=== PATIENT | male | born 1940 | race Caucasian/White ===

== ENCOUNTER 2020-03-07 13:19 | Inpatient (IN) | payer MEDICARE, BC ==
[~2020-03-07] VITALS: Ht 177.8 cm; Wt 64.9 kg
--- NOTE | ~2020-03-07 | HEMODYNAMI ---
PATIENT:RYAN SORIANO MEDICAL RECORD: [id number] : 36 LOCATION:[facility] D.2302 ADMISSION DATE: 03/07/20 Generatedon:03/08/202013:59 Patient name: RYAN SORIANO Patient #: [id number] SSN: : 1940 Date of study: 03/08/2020 Page: Of Hemodynamic Procedure Report Patient Data Patient Demographics Procedure consent was obtained First Name: RYAN Gender: Male Last Name: CHRISTIE : 1940 Patient #: [id number] Age: 80 year(s) Race: Unknown Additional ID: [id number] Contact details Address: [place] [place] [address] State: [place] City: [place] Zip code: [address] Admission Admission Data Admission Date: 03/07/2020 Admission Time: 18:51 Arrival Date: 03/07/2020 Arrival Time: 18:51 Admit Source: Other Insurance Payor: Medicare Room #: D.2302 [facility] #: [id number] Height (in.): 69.69 BSA: 1.79 (m2) Height (cm.): 177 BMI: 20.43 (kg/m2) Weight (lbs.): 141.1 Weight (kg.): 64 Lab Results Lab Result Date: 03/08/2020 Lab Result Time: 0:00 Biochemistry Name Units Result Min Max BUN mg/dl 23 --(----)-* 7 18 Creatinine mg/dl 1 --(--*-)-- 0.6 1.3 eGFR ml/min 76.22883 *-(----)-- 90 120 NONAFRICAN CBC Name Units Result Min Max Hemoglobin g/dl 11.3 *-(----)-- 13.5 17.5 Procedure Procedure Types Cath Procedure Diagnostic Procedure LHC LHC w/Coronaries Sedation Charges Moderate Sedation 10-24 minutes Procedure Description Procedure Date Procedure Date: 03/08/2020 Procedure Start Time: 13:49 Procedure End Time: 13:56 Procedure Staff Name Function Alexy Sage MD Performing Physician Mouna Caruso RT Monitor Ashley Ivory RT Scrub Anai Tatum RN Nurse Procedure Data Cath Procedure Fluoroscopy Diagnostic fluoroscopy Total fluoroscopy Time: 1.4 time: 1.4 min min Diagnostic fluoroscopy Total fluoroscopy dose: 473 dose: 473 mGy mGy Contrast Material Contrast Material Type Amount (ml) Isovue 300 69 Entry Location Entry Primary Successful Side Size Upsize Upsize Entry Closure Succes sful Closure Location (Fr) 1 (Fr) 2 (Fr) Remarks Device Remarks Femoral Right 5 Fr Exoseal artery Estimated blood loss: 5 ml Diagnostic catheters Device Type Used For End Catheter Placement MULTIPACK JL 4.0 5Fr Left Coronary catheter Angiography MULTIPACK 3DRC 5Fr Right Coronary catheter Angiography MULTIPACK Pigtail 5 Fr Multi-vessel catheter Angiography Procedure Complications No complications Procedure Medications Medication Administration Route Dosage Oxygen etCO2 Nasal cannula 2 l/min Lidocaine 2% added to field 20 Heparin Flush Bag added to field 2 bags (1000units/500ml NS) 0.9% NaCl I.V. 100 ml/hr Dobutamine I.V. drip 2.5 mcg/kg/min (500mg/250ml D5W) unlisted medication I.V. drip 63.75 ml/hr Versed I.V. 1 mg Fentanyl I.V. 50 mcg Versed I.V. 1 mg Fentanyl I.V. 50 mcg Versed I.V. 1 mg Fentanyl I.V. 50 mcg Hemodynamics Rest BSA: 1.79 (m2) HGB: 11.3 (g/dl) O2 Consumption: Estimated: 213.83 (ml/min) O2 Co nsumption indexed: Estimated:119.46 (ml/min/m) Heart Rate: 85 (bpm) Pressure Samples Time Site Value (mmHg) Purpose Heart Use Rate(bpm) 13:54 LV 68/-2,2 Snapshot 65 Gradients Valve Time Site Site Mean SEP/DFP Peak To Heart Use 1 2 (mmHg) (sec/min) Peak Rate (mmHg) (bpm) Aortic 13:55 LV AO 74 Snapshots Pre Cath Intra NCS Post Cath Vital Signs Time Heart Resp SPO2 etCO2 NIBP (mmHg) Rhythm Pain Sedation Rate (ipm) (%) (mmHg) Status Level (bpm) 13:21:58 76 24 97 25 131/54(95) NSR 0 (11) 10(A) , No pain 13:26:20 78 25 94 28.7 124/61(100) NSR 0 (11) 10(A) , No pain 13:30:44 74 25 95 25 134/54(95) NSR 0 (11) 10(A) , No pain 13:35:02 72 25 94 11.3 132/59(90) NSR 0 (11) 10(A) , No pain 13:39:27 67 20 94 24.2 127/63(107) NSR 0 (11) 10(A) , No pain 13:43:42 70 20 94 18.9 120/56(95) NSR 0 (11) 10(A) , No pain 13:48:01 75 20 94 32.5 128/62(93) NSR 0 (11) 9(A) , No pain 13:52:27 71 19 98 1.5 129/56(99) NSR 0 (11) 9(A) , No pain 13:56:47 86 22 99 1.5 138/62(95) NSR 0 (11) 10(A) , No pain Medications Time Medication Route Dose Verified Delivered Reason Notes Effectiveness by by 13:23:53 Oxygen etCO2 2 l/min Alexy Ospina used for Nasal [facility] Tatum RN procedure cannula 13:24:00 Lidocaine 2% added 20ml vial Alexy Tracey to [facility] field MD LEGGETT 13:24:07 Heparin Flush added 2 bags Alexy Tracey used for Bag to [facility] procedure (1000units/500ml field MD LEGGETT NS) 13:24:17 0.9% NaCl I.V. 100 ml/hr Alexy Ospina Per [facility] Tatum RN physician 13:24:27 Dobutamine I.V. 2.5 Alexy Ospina Per drip (500mg/250ml drip mcg/kg/min [facility] Tatum RN physician continued D5W) from icu via pump 13:25:16 Sodium Phosphate I.V. 63.75 Alexy Ospina Per contin ued drip ml/hr [facility] Tatum RN physician from icu via pump 13:34:53 Versed I.V. 1 mg Alexy Ospina for [facility] Tatum RN sedation 13:35:00 Fentanyl I.V. 50 mcg Alexy Ospina for [facility] Tatum RN sedation 13:40:08 Versed I.V. 1 mg Alexy Ospina for [facility] Tatum RN sedation 13:40:13 Fentanyl I.V. 50 mcg Alexy Ospina for [facility] Tatum RN sedation 13:45:36 Versed I.V. 1 mg Alexy Ospina for [facility] Tatum RN sedation 13:45:41 Fentanyl I.V. 50 mcg Alexy Ospina for [facility] Tatum RN sedation Procedure Log Time Note 12:51:36 Informed consent obtained and on chart 12:54:51 Arrival Date: 03/07/2020 6:51:00 PM 12:55:15 Admit Source: Other 12:55:17 Insurance Payor : Medicare 12:55:28 Patient Height : 69.69 inches 12:55:32 Patient Weight : 141.1 lbs 12:55:37 Diagnostic Cath Status : Urgent 12:56:42 Lab Result : Hemoglobin 11.3 g/dl 12:56:42 Lab Result : eGFR NONAFRICAN 76.50086 ml/min 12:56:42 Lab Result : BUN 23 mg/dl 12:56:42 Lab Result : Creatinine 1 mg/dl 12:57:05 Procedure Status Urgent Heart Cath (IP). 12:57:07 Anai Tatum RN sent for patient. Start room use. 12:57:08 Time tracking: Regular hours (M-F 7:00 - 5:00) 12:57:12 Plan of Care:Hemodynamics will remain stable., Cardiac rhythm will remain stable., Comfort level will be maintained., Respiratory function will remain adequate., Patient/ family verbilizes understanding of procedure., Procedure tolerated without complication., Recovers from procedure without complications.. 13:20:41 Vital chart was started 13:21:31 Patient received from ICU to CCL 1 Alert and oriented. Tansferred to table in Supine position. 13:21:32 Warm blankets applied, and deidre hugger turned on for patient comfort. 13:21:32 Correct patient and procedure confirmed by team. 13:21:32 ECG and BP/O2 sat monitors applied to patient. 13:21:34 Baseline sample Acquired. 13:21:39 Rhythm: sinus tachycardia 13:21:45 Full Disclosure recording started 13:21:49 H&P Date Dictated: 03/08/2020 New H&P dictated by physician.. 13:21:51 Pre-procedure instructions explained to patient. 13:21:51 Pre-op teaching completed and patient verbalized understanding. 13:21:53 Family in patients room. 13:21:54 Patient NPO since Midnight. 13:21:58 Is the patient allergic to Iodine/contrast media? No. 13:21:59 Was the patient premedicated? Yes 13:22:31 Is patient on blood thinner?Yes 13:22:37 ACC The patient was administered the following blood thiners within the last 24 hours: ACCLovenox 13:22:39 Patient diabetic? No. 13:22:42 Previous problem with sedation/anesthesia? No ? 13:22:44 Snore? Yes 13:22:45 Sleep apnea? No 13:22:46 Deviated septum? No 13:22:46 Opens mouth fully? Yes 13:22:47 Sticks out tongue? Yes 13:22:50 Airway obstruction? Yes COPD 13:22:54 Dentures? No ? 13:22:58 Pre procedure: right dorsailis pedis pulse 2+ Normal; easily identifiable; not easily obliterated 13:23:01 Pre procedure: left dorsailis pedis pulse 2+ Normal; easily identifiable; not easily obliterated 13:23:02 Patient pain scale 0/10 ?. 13:23:08 IV patent on arrival in left forearm with 0.9% NaCl at [facility]. 13:23:10 Lab results completed and on chart. 13:23:15 Right groin area was prepped with chlora-prep and draped in sterile fashion 13:23:17 Alarms reviewed by R. N. 13:23:18 Sharps counted by scrub and verified by R.N. 13:23:53 Oxygen 2 l/min etCO2 Nasal cannula was administered by Anai Tatum RN; used for procedure; Verbal order read back and verified. 13:24:00 Lidocaine 2% 20ml vial added to field was administered by Alexy Sage MD; ; Verbal order read back and verified. 13:24:07 Heparin Flush Bag (1000units/500ml NS) 2 bags added to field was administered by Alexy Sage MD; used for procedure; Verbal order read back and verified. 13:24:17 0.9% NaCl 100 ml/hr I.V. was administered by Anai Tatum RN; Per physician; Verbal order read back and verified. 13:24:27 Dobutamine (500mg/250ml D5W) 2.5 mcg/kg/min I.V. drip was administered by Anai Tatum RN; Per physician; drip continued from icu via pump Verbal order read back and verified. 13:24:42 2) 60-89 Mildly reduced kidney function, and other findings (as for stage 1) point to kidney disease. 13:25:07 Maximum allowable contrast dose (3.7 X eGFR X 0.75)210 ml. 13:25:11 Sedation plan: IV Moderate Sedation Medication:Versed, Fentanyl 13:25:16 Sodium Phosphate 63.75 ml/hr I.V. drip was administered by Anai Tatum RN; Per physician; continued from icu via pump Verbal order read back and verified. 13:28:15 Physician arrived 13:28:16 --------ALL STOP TIME OUT------ 13:28:17 Final Timeout: patient, procedure, and site verified with staff and physician. All members of the team are in agreement. 13:28:18 Right groin site verified by team. 13:28:21 Fire Safety Assessment: A--An alcohol-based skin anteseptic being used preoperatively., C--Open oxygen or nitrous oxide is being used., D--An ESU, laser, or fiber-optic light is being used. 13:28:25 Physical assessment completed. ASA score P 2 - A patient with mild systemic disease as per Alexy Sage MD. 13:28:31 Use device set Femoral Dx 13:28:32 ACIST Syringe (66055) opened to sterile field. 13:28:33 Bag Decanter (2002) opened to sterile field. 13:28:33 Medline Cath Pack ([id number]) opened to sterile field. 13:28:34 ACIST Hand Control (25337) opened to sterile field. 13:28:35 ACIST Manifold (51952) opened to sterile field. 13:28:35 DIAGNOSTIC Multipack 5Fr catheter set (MR5430) opened to sterile field. 13:28:35 Tegaderm 4 x 4 (1626W) opened to sterile field. 13:28:36 SHEATH 5FR [place] (FPX729) opened to sterile field. 13:28:37 EMERALD Guide Wire (436-755) opened to sterile field. 13:34:53 Versed 1 mg I.V. was administered by Anai Tatum RN; for sedation; Verbal order read back and verified. 13:35:00 Fentanyl 50 mcg I.V. was administered by Anai Tatum RN; for sedation; Verbal order read back and verified. 13:40:08 Versed 1 mg I.V. was administered by Anai Tatum RN; for sedation; Verbal order read back and verified. 13:40:13 Fentanyl 50 mcg I.V. was administered by Anai Tatum RN; for sedation; Verbal order read back and verified. 13:42:59 Zero performed for pressure channel P1 13:45:36 Versed 1 mg I.V. was administered by Anai Tatum RN; for sedation; Verbal order read back and verified. 13:45:41 Fentanyl 50 mcg I.V. was administered by Anai Tatum RN; for sedation; Verbal order read back and verified. 13:49:16 Procedure started. 13:49:19 Local anesthetic to right femoral artery with Lidocaine 2% by Alexy Sage MD.INITIAL ACCESS ONLY 13:49:30 A 5 Fr sheath was inserted into the Right Femoral artery 13:49:36 A MULTIPACK JL 4.0 5Fr catheter was advanced over the wire and used for Left Coronary Angiography. 13:50:55 LCA angiography performed. 13:50:58 Injector settings: Ml/sec: 3, Volume: 6, 13:52:04 Catheter removed. 13:52:09 A MULTIPACK 3DRC 5Fr catheter was advanced over the wire and used for Right Coronary Angiography. 13:53:04 RCA angiography performed. 13:53:09 Injector settings: Ml/sec: 3, Volume: 6, 13:53:25 Catheter removed. 13:53:34 A MULTIPACK Pigtail 5 Fr catheter was advanced over the wire and used for Multi-vessel Angiography. 13:53:41 EXOSEAL 5Fr (EX500) opened to sterile field. 13:54:31 LV hemodynamics recorded. 13:54:32 LV gram done using SONG 13:54:35 Injector settings: Ml/sec: 5, Volume: 15, 13:54:44 EF : 55 % 13:54:55 Catheter removed. 13:55:16 Sheath removed intact; hemostasis achieved with Exoseal to the Right Femoral artery. 13:55:18 Procedure ended.(Physican Out) 13:55:27 Fluoroscopy time 01.40 minutes. 13:55:31 Fluoroscopy dose: 473 mGy 13:55:31 Flurop Dose total: 473 13:55:37 Dose Area Product 70261 mGy/cm. 13:55:41 Contrast amount:Isovue 300 69ml. 13:55:43 Maximum allowable dose exceeded? No. 13:55:44 Sharps counted by scrub and verified by R.N. 13:55:45 Insertion/operative site no bleeding no hematoma. 13:55:48 Post-op/insertion site Right Femoral artery dressed using a 4 x 4 and Tegaderm. 13:55:50 Post Procedure Pulses reassessed and unchanged 13:55:53 Post procedure rhythm: unchanged. 13:55:55 Estimated blood loss: 5 ml 13:55:57 Post procedure instruction explained to patient.Patient verbalizes understanding. 13:55:57 Patient needs reinforcement of post procedure teaching. 13:56:24 Procedure type changed to Cath procedure, Diagnostic procedure, LHC, C w/Coronaries, Sedation Charges, Moderate Sedation 10-24 minutes 13:56:25 Procedure and supply charges have been captured, reviewed, submitted and are correct. 13:56:30 Procedure Complication : No complications 13:56:32 Vital chart was stopped 13:56:34 [facility] Findings: mild to moderate CAD (<70%) 13:56:36 Operative report dictated upon procedure completion. 13:56:36 See physician's report for complete and final results. 13:56:40 Report given to ICU. 13:56:42 Patient transfered to ICU with Stretcher. 13:56:45 Procedure ended. 13:56:45 Full Disclosure recording stopped 13:56:49 End room use (Document Last) 13:58:48 End room use (Document Last) 13:59:06 End room use (Document Last) Device Usage Item Name Manufacture Quantity Catalog Hospital Part Current Minimal L ot# / Number Charge Number Stock Stock Serial# Code ACIST Acist 1 95083 785867 573656 393460 20 Syringe LOGIC DEVICES (14501) Systems Inc Bag Microtek 1 005827 00773 694437 5 Decanter LOGIC DEVICES Inc. (2002S) Medline Medline 1 [id number] 292212 49528 670954 5 Cath Pack ([id number]) ACIST Hand Acist 1 97058 256529 959316 693726 5 Control Medical (53798) Systems Inc ACIST Acist 1 21666 742203 602503 854928 5 Manifold Medical (74303) Systems Inc DIAGNOSTIC Cardinal 1 [id number] 048970 36174 256615 30 Multipack Health 5Fr catheter set (TW2774) Tegaderm 4 3M 1 1626W 070921 582783 301905 5 x 4 (1626W) SHEATH 5FR Terumo 1 GAF569 639645 902011 041568 5 [place] (USI230) EMERALD Cardinal 1 343-683 600577 366254 213753 5 Guide Wire [facility] (502455) MULTIPACK Cardinal 1 076186 5 JL 4.0 5Fr Health catheter MULTIPACK Cardinal 1 988702 5 3DRC 5Fr Health catheter MULTIPACK Cardinal 1 114747 5 Pigtail 5 Health Fr catheter EXOSEAL 5Fr Cardinal 1 EX500 390509 036339 021974 10 (EX500) Health Signature Audit [place] Stage Time Signature Unsigned Intra-Procedure 03/08/2020 Mouna Caruso 1:58:48 PM RT(R) Intra-Procedure 03/08/2020 Anai Tatum RN 1:59:06 PM Intra-Procedure 03/08/2020 Alexy Baum 1:59:20 PM Alcides [facility] [address] [place] [address]
[2020-03-07 19:00] VITALS: BP 127/55
[2020-03-07 19:51] LABS: BASOPHILS 0.1 % (0-2); EOSINOPHILS 0.1 % (0-7); HEMATOCRIT 35.1 % (42.0-54.0); HEMOGLOBIN 11.3 g/dL (13.5-17.5); IMMATURE GRANULOCYTES 0.3 % (0-5); LYMPHOCYTES 5.4 % (15-50); MCH 29.7 pg (26.0-34.0); MCHC 32.2 g/dL (31.0-37.0); MCV 92.4 fL (80.0-100.0); MEAN PLATELET VOLUME 10.1 fL (7.4-10.4); MONOCYTES 8.8 % (2-11); NEUTROPHILS 85.3 % (40-80); PLATELET COUNT 239 10x3/uL (130-400); RDW 14.6 % (11.5-14.5); WBC 18.8 10x3/uL (4.8-10.8)
--- NOTE | 2020-03-07 19:56 | NUR ---
ECHO BEING DONE AT BEDSIDE AT PRESENT
[2020-03-07 20:00] LABS: APTT 32.4 SECONDS (22.8-39.4); INR 1.17 (0.85-1.17); PROTIME 14.9 SECONDS (11.6-15.0)
[2020-03-07 20:12] LABS: CALC OSMOLALITY 273 mosm/kg (275-300); CALCIUM 7.3 mg/dL (8.5-10.1); CHLORIDE - SERUM 104 mmol/L (98-107); GLUCOSE 93 mg/dL (74-106); POTASSIUM - SERUM 4.1 mmol/L (3.5-5.1); SODIUM 135 mmol/L (136-145); UREA NITROGEN 23 mg/dL (7-18); eGFR NON AFRICAN AMERICAN 76 mL/min (90-120)
--- NOTE | 2020-03-07 20:28 | NUR ---
PT TRANSPORTED TO CT SCAN IN BED BY CT PERSONNEL
[2020-03-07 20:43] LABS: ALBUMIN 2.2 g/dL (3.4-5.0); ALKALINE PHOSPHATASE 57 U/L (30-120); ALT (SGPT) 10 U/L (10-68); CKMB 1.5 U/L (0.0-3.6); CREATINE KINASE 59 UL (21-232); MAGNESIUM - SERUM 1.8 mg/dL (1.8-2.4); PHOSPHOROUS 1.8 mg/dL (2.5-4.9); PRO BNP 2122 pg/mL (0-450); PROTEIN - SERUM 6.1 g/dL (6.4-8.2); TROPONIN-I 0.022 ng/mL (0.000-0.060)
--- NOTE | 2020-03-07 20:57 | NUR ---
RETURNED FROM CT PER BED. NO DISTRESS.
--- NOTE | 2020-03-07 21:09 | NUR ---
ASHU CALLED AND UPDATE GIVEN. QUESTIONS ANSWERED BEST POSSIBLE.
[2020-03-07 22:00] VITALS: BP 126/53
--- NOTE | 2020-03-07 22:00 | NUR ---
SPOKE WITH DR. MALONEY CONCERNING CONSULT AND PT STATUS GIVEN AND OREDERS GIVEN AND IMPLEMENTED. CARES CONTINUE.
[2020-03-07 23:00] VITALS: BP 130/58
--- NOTE | 2020-03-07 23:09 | NUR ---
SUGAR HUTSON AT BEDSIDE. PT STATUS UPDATED. MADE AWARE OF CONTINUED PAIN REGUARDLESS OF PREVIOUS MORPHINE AND MADE AWARE OF PAINFUL URINATION. BLADDER SCANNED FOR 179ML AFTER 100ML VOID. WILL CONT. TO MONITOR. ORDES GIVEN TO INCREASE MEDICATION DOSE.
--- NOTE | 2020-03-07 23:35 | NUR ---
DR DOW AT BEDSIDE EVALUATING PT.
[2020-03-07 23:40] VITALS: BP 126/59
[2020-03-08] VITALS (12 sets, daily range): BP systolic 91–138; BP diastolic 46–85; Ht 177.8 cm; Wt 64.9 kg
[2020-03-08 00:52] LABS: BILIRUBIN NEGATIVE (NEGATIVE); KETONE SMALL mg/dL (NEGATIVE); NITRITE POSITIVE (NEGATIVE); UROBILINOGEN NORMAL mg/dL (< 2)
[2020-03-08 00:54] LABS: BACTERIA MODERATE HPF (NONE SEEN); SQUAMOUS EPITHELIAL 0-5 HPF (0-4)
--- NOTE | 2020-03-08 03:07 | NUR ---
EKG OBTAINED ORDERED. PT WITHOUT C/O CHEST PAIN. VITALS STABLE
[2020-03-08 05:20] LABS: BASOPHILS 0.1 % (0-2); EOSINOPHILS 0.1 % (0-7); HEMATOCRIT 35.2 % (42.0-54.0); HEMOGLOBIN 11.1 g/dL (13.5-17.5); IMMATURE GRANULOCYTES 0.3 % (0-5); LYMPHOCYTES 5.3 % (15-50); MCHC 31.5 g/dL (31.0-37.0); MCV 91.9 fL (80.0-100.0); MEAN PLATELET VOLUME 10.3 fL (7.4-10.4); MONOCYTES 9.2 % (2-11); PLATELET COUNT 251 10x3/uL (130-400); RBC 3.83 10x6/uL (4.20-6.10); RDW 14.6 % (11.5-14.5); WBC 18.6 10x3/uL (4.8-10.8)
--- NOTE | 2020-03-08 08:09 | NUR ---
DR HOPPER AT THE PTS BEDSIDE. PLANS TO BRING THE PT TO THE BALANCE STAFF STAKER LATER TODAY. OK TO TRANSFER TO THE FLOOR.
[2020-03-08 09:15] LABS: ALBUMIN 2.1 g/dL (3.4-5.0); ALKALINE PHOSPHATASE 55 U/L (30-120); ALT (SGPT) 8 U/L (10-68); BILIRUBIN - TOTAL 0.38 mg/dL (0.2-1.3); CALC OSMOLALITY 279 mosm/kg (275-300); CALCIUM 7.6 mg/dL (8.5-10.1); CARBON DIOXIDE 26.3 mmol/L (21.0-32.0); CHLORIDE - SERUM 104 mmol/L (98-107); CHOL - HDL RATIO 4.6 ratio (2.3-4.9); CHOLESTEROL, TOTAL 106 mg/dL (0-200); CREATININE - SERUM 0.9 mg/dL (0.6-1.3); GLUCOSE 98 mg/dL (74-106); HDL CHOLESTEROL 23 mg/dL (32-96); LDL CHOLESTEROL 64 mg/dL (0-100); LDL-HDL RATIO 2.8 ratio (1.5-3.5); MAGNESIUM - SERUM 1.9 mg/dL (1.8-2.4); PROTEIN - SERUM 5.4 g/dL (6.4-8.2); SODIUM 140 mmol/L (136-145); THYROID STIMULATING HORMONE 1.03 uIU/mL (0.36-3.74); TRIGLYCERIDE 98 mg/dL (30-200); eGFR NON AFRICAN AMERICAN 86 mL/min (90-120)
[2020-03-08 09:16] LABS: PHOSPHOROUS 2.3 mg/dL (2.5-4.9); UREA NITROGEN 16 mg/dL (7-18)
--- NOTE | 2020-03-08 13:33 | NUR ---
PT LEFT FOR HEART CATH
--- NOTE | 2020-03-08 14:02 | NUR ---
SPOKE WITH DR HOPPER. DC DOBUTREX AND NS AT 50ML/H
--- NOTE | 2020-03-08 14:20 | NUR ---
PT BACK IN THE UNIT. RIGHT GROIN DRESSIG C/D/I. SOFT TO PALPATION. NO HEMATOMA NOTED. VSS. NSR PT DENIES PAIN AT THIS TIME. CALL LIGHT IN REACH. WILL CONT POC.
--- NOTE | 2020-03-08 18:23 | NUR ---
PATIENT JUST GOT BACK FROM [facility]KE [facility]. PATIENT IS COMPLAINING OF BURNING WHEN HE URINATES. PATIENT DENIES PAIN ANYWHERE ELSE. PATIENT'S RIGHT GROIN IS PALPATED, NO S/S OF BLOOD. PATIENT DENIES NEEDS. CALL LIGHT IN REACH.
--- NOTE | 2020-03-08 21:30 | NUR ---
PT EXPRESSED CONCERN THAT HE HAD NOT HEARD FROM HIS TODAY. PHONE CALL TO AND SHE STATES SHE WILL BE HERE TO SEE PATIENT TOMORROW. GAVE UPDATE REPORT TO . REVIEWED HOME MEDS WITH AND UPDATED HIS EMAR.
[2020-03-09] MEDS ORDERED: ANDROGEL5 GM TP (03:36)
[2020-03-09] MEDS ORDERED: ALBUTEROL SULF8.5 GM (03:37)
[2020-03-09] MEDS ORDERED: PRAVACHOL40 MG PO (03:38)
[2020-03-09] MEDS ORDERED: DETROL LA2 MG PO (03:38)
[2020-03-09] MEDS ORDERED: LISINOPRIL-HCT1 EAC8 PO (03:38)
[2020-03-09] MEDS ORDERED: PROZAC10 MG PO (03:39)
[2020-03-09] MEDS ORDERED: METHOCARBAMOL500 MG PO (03:40)
[2020-03-09] MEDS ORDERED: OMEPRAZOLE40 MG PO (03:40)
[2020-03-09] MEDS ORDERED: PREDNISONE5 MG PO (03:41)
[2020-03-09] MEDS ORDERED: TESTOSTERONE GEL TOPICAL (03:43)
[2020-03-09] MEDS ORDERED: METHADONE 10 MG10 MG PO (03:47)
[2020-03-09 05:00] VITALS: BP 102/57
--- NOTE | 2020-03-09 05:17 | NUR ---
PT HAS RESTED SINCE RECEIVING MORPHINE. IVF INFUSING/ABT GIVEN. NO DISTRESS. ONE EPISODE OF SPILLED URINE THAT RESULTED IN LINEN CHANGE/PERSONAL CARE/NEW BRIEF. CALL LIGHT IN REACH. CPOC.
[2020-03-09 07:14] LABS: BASOPHILS 0.1 % (0-2); EOSINOPHILS 0.6 % (0-7); HEMATOCRIT 34.7 % (42.0-54.0); HEMOGLOBIN 11.2 g/dL (13.5-17.5); IMMATURE GRANULOCYTES 0.1 % (0-5); LYMPHOCYTES 7.5 % (15-50); MCH 29.3 pg (26.0-34.0); MCHC 32.3 g/dL (31.0-37.0); MCV 90.8 fL (80.0-100.0); MEAN PLATELET VOLUME 10.6 fL (7.4-10.4); MONOCYTES 11.5 % (2-11); NEUTROPHILS 80.2 % (40-80); PLATELET COUNT 265 10x3/uL (130-400); RBC 3.82 10x6/uL (4.20-6.10); RDW 14.4 % (11.5-14.5); WBC 14.2 10x3/uL (4.8-10.8)
[2020-03-09 07:32] LABS: ALBUMIN 1.8 g/dL (3.4-5.0); ALKALINE PHOSPHATASE 54 U/L (30-120); ALT (SGPT) 6 U/L (10-68); BILIRUBIN - TOTAL 0.52 mg/dL (0.2-1.3); CALC OSMOLALITY 268 mosm/kg (275-300); CARBON DIOXIDE 23.6 mmol/L (21.0-32.0); CHLORIDE - SERUM 103 mmol/L (98-107); CREATININE - SERUM 0.9 mg/dL (0.6-1.3); GLUCOSE 98 mg/dL (74-106); MAGNESIUM - SERUM 1.7 mg/dL (1.8-2.4); POTASSIUM - SERUM 3.8 mmol/L (3.5-5.1); PROTEIN - SERUM 5.5 g/dL (6.4-8.2); SODIUM 135 mmol/L (136-145); eGFR NON AFRICAN AMERICAN 86 mL/min (90-120)
[2020-03-09 07:33] LABS: PHOSPHOROUS 1.6 mg/dL (2.5-4.9); UREA NITROGEN 11 mg/dL (7-18)
--- NOTE | 2020-03-09 08:43 | NUR ---
AM MEDS GIVEN AT THIS TIME. ALSO GAVE 4MG OF MORPHINE FOR PAIN LEVEL OF 8/10. PT DENIES ANY OTHER NEEDS AT THIS TIME. [facility], NAD NOTED, WILL CONTINUE PLAN OF CARE.
[2020-03-09 10:53] VITALS: BP 93/54
--- NOTE | 2020-03-09 14:13 | NUR ---
4MG OF MORHINE GIVEN FOR PAIN LEVEL OF 6/10. PT DENIES ANY OTHER NEEDS AT THIS TIME. CALL LIGHT IN REACH, SPOUSE AT BEDSIDE.
[2020-03-09 16:35] VITALS: BP 120/53
--- NOTE | 2020-03-09 20:00 | NUR ---
INITIAL ROUNDS AND ASSESSMENT COMPLETED. PT RESTING IN BED. AT BEDSIDE.SR PER TELEMETRY. NONLABORED RESPIRATIONS ON ROOM AIR. PIV TO RIGHT A/C NO LONGER PATENT, WILL REMOVE. LFA WITH NS @ 50ML/HR INFUSING. USING URINAL TO VOID. STILL REPORTS BURNING WITH URINATION, BUT SAYS IT IS IMPROVED. DRSG TO RIGHT GROIN IN C/D/I. GOOD PEDAL PULSES. CPOC. CALL LIGHT IN REACH.
[2020-03-09 20:30] VITALS: BP 117/52
[2020-03-10 00:30] VITALS: BP 107/60
--- NOTE | 2020-03-10 01:43 | NUR ---
RESTING WITH EYES CLOSED. NEW IVF UP AND ABT UP AND INFUSING. CPOC. AT BEDSIDE.
[2020-03-10 04:30] VITALS: BP 118/52
[2020-03-10 05:31] LABS: BASOPHILS 0.4 % (0-2); EOSINOPHILS 1.3 % (0-7); HEMATOCRIT 37.9 % (42.0-54.0); HEMOGLOBIN 12.2 g/dL (13.5-17.5); IMMATURE GRANULOCYTES 0.2 % (0-5); LYMPHOCYTES 11.8 % (15-50); MCH 29.2 pg (26.0-34.0); MCHC 32.2 g/dL (31.0-37.0); MCV 90.7 fL (80.0-100.0); MEAN PLATELET VOLUME 10.1 fL (7.4-10.4); MONOCYTES 11.8 % (2-11); NEUTROPHILS 74.5 % (40-80); PLATELET COUNT 300 10x3/uL (130-400); RBC 4.18 10x6/uL (4.20-6.10); RDW 14.5 % (11.5-14.5)
[2020-03-10 05:37] LABS: WBC 10.1 10x3/uL (4.8-10.8)
[2020-03-10 05:51] LABS: ALBUMIN 2.1 g/dL (3.4-5.0); ANION GAP 9.1 mmol/L (8-16); BILIRUBIN - TOTAL 0.36 mg/dL (0.2-1.3); CALCIUM 8.3 mg/dL (8.5-10.1); CREATININE - SERUM 1.1 mg/dL (0.6-1.3); PHOSPHOROUS 2.3 mg/dL (2.5-4.9); POTASSIUM - SERUM 4.1 mmol/L (3.5-5.1); PROTEIN - SERUM 6.3 g/dL (6.4-8.2)
[2020-03-10] MEDS ORDERED: DRONABINOL2.5 MG PO (07:09)
--- NOTE | 2020-03-10 07:24 | NUR ---
PT C/O BACK PAIN, NECK PAIN, HEADACHE AND ALSO GRABBING HIS RIGHT GROIN SAYING IT HURTS. MEDICATED WITH MORPHINE 4MG SIVP FOR PAIN. ASSESSED RIGHT GROIN SITE WHERE PT INDICATES DISCOMFORT. HE IS ACTIVELY RUBBING THE INCISION SITE FOR HIS ANGIOGRAM THAT WAS DONE ON WEDNESDAY. SITE SHOWS NO SWELLING OR BRUISING, GOOD FEMORAL AND PEDAL PULSES. INSTRUCTED PT ON IMPORTANCE OF NOT RUBBING OR PRESSING ON THIS SITE DO TO IT BEING WHERE HE HAD HIS PROCEDURE DONE 2 DAYS AGO. SITTING AT BEDSIDE LISTENING. EXPLAINED TO HER THAT IT IS IMPORTANT THAT THE PATIENT STOPS RUBBING AND TOUCHING THIS AREA. EXPLAINED TO PATIENT THAT HE JUST RECIEVED IV MORPHINE AND THAT SHOULD HELP HIS DISCOMFORT. REPORT TO ONCOMING NURSE TO REINFORCE PT IN NOT PRESSING/TOUCHING/PUSHING ON HIS RIGHT GROIN.
[2020-03-10 08:34] VITALS: BP 126/65
--- NOTE | 2020-03-10 09:50 | NUR ---
LT FA IV LEAKING. D/C IV WITH CATHETER TIP INTACT. NEW 2OG IV STARTED TO RT FA X 1 STICK.
--- NOTE | 2020-03-10 09:56 | NUR ---
NOTIFIED MATILDE DONIS APRN ABOUT PT HAVING A RASH ON HIS BACK. NEW ORDER FOR 25MG PO BENADRYL Q6PRN FOR RASH/ITCHING.
[2020-03-10 12:11] VITALS: BP 104/52
[2020-03-10 15:59] VITALS: BP 109/63
[2020-03-10 20:00] VITALS: BP 124/53
[2020-03-11] VITALS: BP 124/53
[2020-03-11 06:41] LABS: HEMATOCRIT 34.9 % (42.0-54.0); HEMOGLOBIN 11.5 g/dL (13.5-17.5); MCH 29.6 pg (26.0-34.0); MCV 89.9 fL (80.0-100.0); MEAN PLATELET VOLUME 9.9 fL (7.4-10.4); PLATELET COUNT 289 10x3/uL (130-400); RBC 3.88 10x6/uL (4.20-6.10); RDW 14.7 % (11.5-14.5); WBC 9.2 10x3/uL (4.8-10.8)
[2020-03-11 07:00] LABS: ALKALINE PHOSPHATASE 50 U/L (30-120); ALT (SGPT) 22 U/L (10-68); BILIRUBIN - TOTAL 0.26 mg/dL (0.2-1.3); CALC OSMOLALITY 272 mosm/kg (275-300); CALCIUM 8.1 mg/dL (8.5-10.1); CARBON DIOXIDE 27.9 mmol/L (21.0-32.0); CHLORIDE - SERUM 102 mmol/L (98-107); GLUCOSE 112 mg/dL (74-106); MAGNESIUM - SERUM 1.7 mg/dL (1.8-2.4); POTASSIUM - SERUM 4.2 mmol/L (3.5-5.1); SODIUM 136 mmol/L (136-145); UREA NITROGEN 12 mg/dL (7-18); eGFR NON AFRICAN AMERICAN 76 mL/min (90-120)
[2020-03-11 07:01] LABS: PHOSPHOROUS 3.2 mg/dL (2.5-4.9)
[2020-03-11 08:13] LABS: EOSINOPHILS 3 % (0-7); LYMPHOCYTES 20 % (15-50); MONOCYTES 8 % (2-11); NEUTROPHILS 68 % (40-80); PLATELET ESTIMATE NORMAL
[2020-03-11 08:40] VITALS: BP 116/52
--- NOTE | 2020-03-11 09:31 | CN ---
PATIENT NAME:RYAN SORIANO MEDICAL RECORD: [id number] : 36 LOCATION:[facility].2122 ADMIT DATE: 03/07/20 ACCOUNT: [id number] CONSULTING PHYSICIAN: NILE HOPPER MD REFERRING PHYSICIAN: LI DOW MD DATE OF CONSULTATION: 03/08/2020 HISTORY OF PRESENT ILLNESS: An 80-year-old gentleman with history of obstructive pulmonary disease, valvular heart disease, rheumatoid arthritis. Initially presented to [facility] with chest pain, shortness of breath, weakness, has had multiple episodes of V-tach at [facility]. Initial enzymes there were positive. He was transferred here for acute coronary syndrome/NSTEMI. PAST MEDICAL HISTORY: Includes; 1. History of hypertension. 2. Hyperlipidemia. ALLERGIES: None known. SOCIAL HISTORY: Lives in [place] area. He is nonsmoker, nondrinker. Has trouble with some ADLs secondary to arthritis. Attempts to stay active. REVIEW OF SYSTEMS: The patient reports easy bruising but reports no swollen glands. The patient reports no fever, no night sweats, no significant weight gain, no significant weight loss. No significant exercise tolerance. The patient reports no dry eyes, no irritation, no vision change. Patient reports no difficulty hearing and no ear pain. Patient reports no frequent nose bleeds or nose and sinus problems. Patient reports on arm pain on exertion. No shortness of breath while lying down. No history of heart murmur. Patient reports no cough, no wheezing or coughing up blood. Patient reports no abdominal pain, no vomiting. Normal appetite. No diarrhea and not vomiting blood. No nausea and no constipation. Patient reports no incontinence. No difficulty urinating. No hematuria. No increased frequency. Patient reports no muscle aches. No weakness, no arthralgias, no back pain. No swelling of the extremities. Patient reports no abnormal mole, no jaundice, no rashes. Reports no loss of consciousness. No weakness and no numbness. No seizures, dizziness, or headaches. The patient reports no depression, no sleep disturbance, feeling safe in a relationship and no alcohol abuse. Patient reports on fatigue. Reports no runny nose or sinus pressure. No itching, no hives, and no frequent sneezing. PHYSICAL EXAMINATION: GENERAL: Elderly gentleman, in no acute distress, appears stated age. VITAL SIGNS: Blood pressure 123/48, pulse 64 and regular. HEENT: Normocephalic and atraumatic. NECK: No JVD or bruit. HEART: Regular, II/ systolic ejection murmur. LUNGS: Good air excursion. ABDOMEN: Soft, nontender. EXTREMITIES: Pulses 2+. No edema. DIAGNOSTIC DATA: EKG shows nonspecific ST-T changes. IMPRESSION: Acute coronary syndrome, ventricular dysrhythmias. CONSULT REPORT [id number] RYAN SORIANO PLAN: For angiography, intervention based on the above. TRANSINT:[id number] Voice Confirmation ID: [id number] DOCUMENT ID: [id number] NILE HOPPER MD at 0931 CC: [id number] DICTATION DATE: 03/08/20 1038 CORSETIER: 03/08/20 1308 ADM IN [facility] [address] [place] [address]
--- NOTE | 2020-03-11 09:31 | OP ---
PATIENT NAME: RYAN SORIANO MEDICAL RECORD: [id number] :36 LOCATION:[facility].2122 ADMISSION DATE:03/07/20 SURGEON: NILE HOPPER MD DATE OF OPERATION: 03/08/2020 PROCEDURE: Left heart catheterization, selective coronary angiography, right femoral artery approach. CATHETERS: A 5-Sami sheath, 5/4 left and right Gustavo, 5/4 pig. The procedure was well tolerated. The patient returned to pettit, sheath removed. ExoSeal device placed. FINDINGS: Left ventriculography in 30-degree SONG view: Normal wall motion, normal systolic function. CORONARY ANATOMY: LEFT MAIN: Left main is free of disease. LAD: Free of disease in the diagonal system. CIRCUMFLEX: Free of disease in the marginal system. RIGHT CORONARY ARTERY: Dominant artery, gives rise to PDA, free of disease. IMPRESSION: Normal left ventricular systolic function. Normal coronary anatomy. TRANSINT:[id number] Voice Confirmation ID: [id number] DOCUMENT ID: [id number] NILE HOPPER MD at 0931 CC: [id number] DICTATION DATE: 03/08/20 1359 RAILROAD BRAKE OPERATOR: 03/09/20 0004 ADM IN [facility] [address] [place] [address]
--- NOTE | 2020-03-11 09:31 | EC ---
PATIENT:RYAN SORIANO DATE OF SERVICE: 03/07/20 SEX: M MEDICAL RECORD: [id number] DATE OF : 36 LOCATION:D.M2 D.212 AGE OF PATIENT: 80 ADMISSION DATE: 03/07/20 REFERRING PHYSICIAN: INTERPRETING PHYSICIAN: NILE HOPPER MD ECHOCARDIOGRAM REPORT ECHO CHARGES 4 ECHO COMPLETE Date: 03/07/20 CLINICAL DIAGNOSIS: V TACH / CHEST PAIN ECHOCARDIOGRAPHIC MEASUREMENTS (adult normal given) AC root (d.<3.7cm) 3.2 cm LV Septum d (<1.2 cm> 1.3 cm Valve Excursion 1.6 cm LV Septum (systole) 1.6 cm Left Atria (s.<4.0cm> 4.7 cm LVPW d(<1.2cm) 1.3 cm RV (d.<2.3cm) 4.3 cm LVPW (sytole) 1.8 cm LV diastole(<5.6CM) 4.7 cm MV E-F(>70mm/sec) cm LV systole 3.0 cm LVOT Diameter 2.2 cm MV exc.(>10mm) 1.5 cm Est.ejection fraction (50-75%) % DOPPLER: LVIT cm/sec A 85.0 cm/sec E 128.0 cm/sec LA cm/sec RVSP 54 mmHg LVOT 136 cm/sec AOP1/2T m/s Asc. Ao 193 cm/sec RVOT 79 cm/sec RA cm/sec PA 118 cm/sec AV Gradient Peak 14.91mmHg AV Mean 7.71 mmHg AV Area 2.8 cm MV Gradient Peak 8.32 mmHg MV Mean 2.63 mmHg MV Area cm COMMENTS: Fish Straightener: 2 JOSE HIGUERA Offshore Wind Turbine Technician: 3 Dr. Turner TAPE# PACS Pericardial Effusion N DATE OF SERVICE: Adequate 2D, color-flow imaging, spectral Doppler, and M-Mode LVH is present. LV internal dimension is normal. Wall motion is normal. EF is greater than or equal to 55%. Aortic valve sclerosis with minimally elevated velocities of 15 mmHg putting this in a very mild range. Left atrium is dilated at 4.7 cm. Mitral valve shows no prolapse. Mild MR. Right-sided chambers are grossly normal. Trace TR. ECHOCARDIOGRAM REPORT [id number] RYAN SORIANO TRANSINT:[id number] Voice Confirmation ID: [id number] DOCUMENT ID: [id number] NILE HOPPER MD at 0931 CC: [id number] DICTATION DATE: 03/08/20 1043 BANKING PIN ADJUSTER: 03/08/20 1311 ADM IN [facility] [address] [place] [address]
--- NOTE | 2020-03-11 12:28 | NUR ---
Nutrition Follow-up: Family reports that pt's overall appetite is not very good and typically snacks more than eats actual meals. Pt did eat ~75% of breakfast this AM. Denies N/V/C/D, chewing/swallowing difficulties. Does like Ensure and requests that it be sent with meals. Diet: Cardiac PO intake: 74% avg x 7 meals Wt: 143# (03/08) Last BM: 03/10 Labs noted: Glu 112, Ca 8.1, Mg 1.7, Alb 2.0 Meds noted: HCTZ, Marinol, Florajen, Pepcid, NS @ 50, electrolyte protocol -Encourage PO intake and honor food preferences within diet restrictions. -+Ensure with meals. -Need new wt if possible; noted daily wts ordered. -RD following.
--- NOTE | 2020-03-11 13:52 | MORECARE ---
CASE MANAGEMENT DISCHARGE SUMMARY PATIENT: RYAN SORIANO UNIT: [id number] ADM DATE: 03/07/20 AGE: 80 : 38 SEX: M ROOM/BED: D.2122 AUTHOR: CHANCE MACDONALD PHYSICIAN: REFERRING PHYSICIAN: LI DOW MD DATE OF SERVICE: 03/11/20 Discharge Plan Patient Name: RYAN [facility]ORIANO [facility] [facility] 1940 Planned Disposition: Anticipated Discharge Date: Discharge Date: Expected LOS: Initial Reviewer: [email or web address] Initial Review Date: 03/07/2020 Generated: 03/11/20 2:52 pm Patient Name: RYAN SORIANO Page [phone] at 1352 All edits/amendments must be made on the electronic document DICTATION DATE: 03/11/20 1352 INTERNATIONAL OPERATIONS MANAGER: KRISTINA 03/11/20 1352 RPT#: [id number] DC DATE: STATUS: ADM IN [facility] [address] [place] [address] END OF REPORT
[2020-03-11 20:00] VITALS: BP 124/50
[2020-03-12] VITALS: BP 126/50
[2020-03-12 04:00] VITALS: BP 112/41
[2020-03-12 05:58] LABS: BASOPHILS 0.4 % (0-2); EOSINOPHILS 3.4 % (0-7); HEMATOCRIT 33.2 % (42.0-54.0); HEMOGLOBIN 10.7 g/dL (13.5-17.5); IMMATURE GRANULOCYTES 0.4 % (0-5); LYMPHOCYTES 21.3 % (15-50); MCH 28.8 pg (26.0-34.0); MCHC 32.2 g/dL (31.0-37.0); MCV 89.5 fL (80.0-100.0); NEUTROPHILS 60.5 % (40-80); PLATELET COUNT 307 10x3/uL (130-400); RBC 3.71 10x6/uL (4.20-6.10); RDW 14.4 % (11.5-14.5); WBC 10.4 10x3/uL (4.8-10.8)
[2020-03-12 06:35] LABS: ALBUMIN 2.1 g/dL (3.4-5.0); ANION GAP 6.9 mmol/L (8-16); BILIRUBIN - TOTAL 0.27 mg/dL (0.2-1.3); CALCIUM 8.3 mg/dL (8.5-10.1); CARBON DIOXIDE 29.1 mmol/L (21.0-32.0); CREATININE - SERUM 1.1 mg/dL (0.6-1.3); MAGNESIUM - SERUM 1.8 mg/dL (1.8-2.4); PHOSPHOROUS 3.4 mg/dL (2.5-4.9)
--- NOTE | 2020-03-12 07:15 | NUR ---
RECEIVE SHIFT REPORT. RESTING IN BED WITH AT BEDSIDE. ASKING FOR SOMETHING FOR PAIN AND WAS INFORMED WHEN HE WAS ABLE TO HAVE NEXT DOSE. WILL CONTINUE PLAN OF CARE AND SAFETY PRECAUTIONS.
[2020-03-12 08:08] VITALS: BP 129/52
[2020-03-12] MEDS ORDERED: LEVOFLOXACIN500 MG PO (12:14)
[2020-03-12 12:17] VITALS: BP 90/42
--- NOTE | 2020-03-12 13:04 | NUR ---
OT NOTE: BED MOB WITH SPV; IN ROOM AMBULATION WITH SPV AND USE OF 02 AT 2L; REPORTED SIGNIFICANT PAIN IN NECK AND BACK. AMB INTO HALLWAY APPROX 60 FT WITHOUT AND WITH CGA. DID NOT REQUIRE REST BREAK TODAY SINCE HE HAD ON 02 [place], OTR/L [phone]
--- NOTE | 2020-03-12 13:16 | MORECARE ---
CASE MANAGEMENT DISCHARGE SUMMARY PATIENT: RYAN SORIANO UNIT: [id number] ADM DATE: 03/07/20 AGE: 80 : 38 SEX: M ROOM/BED: D.2122 AUTHOR: CHANCE MACDONALD PHYSICIAN: REFERRING PHYSICIAN: LI DOW MD DATE OF SERVICE: 03/12/20 Discharge Plan Patient Name: RYAN SORIANO [facility] [facility] 1940 Planned Disposition: Anticipated Discharge Date: Discharge Date: Expected LOS: Initial Reviewer: [id number] Initial Review Date: 03/07/2020 Generated: 03/12/20 2:16 pm External Providers External [facility] Next Contact Date: Service Request Date: Service Type: Resolution: Reviewer: Comments: Coverage Notice Reviewer: [id number] Shanice Carrillo Notice Issued Date-Time: 03/12/2020 11:00 Notice Type: Patient Choice Letter Notice Delivered To: Patient Relationship to Patient: Self Business Process Modeler Name: Delivery Method: HAND - Hand Delivered Katrin Days: Prior Verbal Notification: Recipient Understood Notice: Yes Recipient Signature: Yes Med Rec Note Co-signed by Attending: Coverage Notice Comment: [facility] PT. DECLINED Reviewer: [id number] Shanice Carrillo Notice Issued Date-Time: 03/12/2020 11:00 Notice Type: IM Discharge Notice Notice Delivered To: Patient Relationship to Patient: Self Business Process Modeler Name: Delivery Method: HAND - Hand Delivered Katrin Days: Prior Verbal Notification: Recipient Understood Notice: Yes Recipient Signature: Yes Med Rec Note Co-signed by Attending: Coverage Notice Comment: IMM DELIVERED Last DP export: 03/11/20 12:52 Patient Name: RYAN SORIANO Page [phone] at 1316 All edits/amendments must be made on the electronic document DICTATION DATE: 03/12/20 1316 BUFFER MACHINE: KRISTINA 03/12/20 1316 RPT#: [id number] DC DATE: STATUS: ADM IN [facility] [address] [place] [address] END OF REPORT
--- NOTE | 2020-03-12 13:25 | MORECARE ---
CASE MANAGEMENT DISCHARGE SUMMARY PATIENT: RYAN SORIANO UNIT: [id number] ADM DATE: 03/07/20 AGE: 80 : 38 SEX: M ROOM/BED: D.2122 AUTHOR: RENAEDOC PHYSICIAN: REFERRING PHYSICIAN: LI DOW MD DATE OF SERVICE: 03/12/20 Discharge Plan Patient Name: RYAN SORIANO Facility: [facility]:[place] : 1940 Planned Disposition: Home Anticipated Discharge Date: Discharge Date: Expected LOS: 0 Initial Reviewer: [email or web address] Initial Review Date: 03/07/2020 Generated: 03/12/20 2:24 pm DCPIA - Discharge Planning Initial Assessment Updated by [email or web address]: Gabrielle Carrillo on 03/12/20 1:21 pm * Is the patient Alert and Oriented? Yes * How many steps to enter\exit or inside your home? RAMP * PCP PAGE * [facility] * Preadmission Environment Home with Family * ADLs Independent * Equipment None * Verbal permission to speak to the caregivers and representatives has been obtained from the patient. N/A * Community resources currently utilized None * Additional services required to return to the preadmission environment? No * Can the patient safely return to the preadmission environment? Yes * Has this patient been hospitalized within the prior 30 days at any hospital? No Coverage Notice Reviewer: [id number] Shanice Carrillo Notice Issued Date-Time: 03/12/2020 11:00 Notice Type: Patient Choice Letter Notice Delivered To: Patient Relationship to Patient: Self Gift Shop Clerk Name: Delivery Method: HAND - Hand Delivered Katrin Days: Prior Verbal Notification: Recipient Understood Notice: Yes Recipient Signature: Yes Med Rec Note Co-signed by Attending: Coverage Notice Comment: [facility] PT. [facility] Reviewer: [email or web address] Shanice Carrillo Notice Issued Date-Time: 03/12/2020 11:00 Notice Type: IM Discharge Notice Notice Delivered To: Patient Relationship to Patient: Self Gift Shop Clerk Name: Delivery Method: HAND - Hand Delivered Katrin Days: Prior Verbal Notification: Recipient Understood Notice: Yes Recipient Signature: Yes Med Rec Note Co-signed by Attending: Coverage Notice Comment: IMM DELIVERED Last DP export: 03/12/20 12:16 Patient Name: RYAN SORIANO Page [phone] at 1325 All edits/amendments must be made on the electronic document DICTATION DATE: 03/12/201324 FREEZING ROOM WORKER: KRISTINA 03/12/201324 RPT#: [id number] DC DATE: STATUS: ADM IN [facility] [address] [place] [address] END OF REPORT
--- NOTE | 2020-03-12 13:33 | MORECARE ---
CASE MANAGEMENT DISCHARGE SUMMARY PATIENT: RYAN SORIANO UNIT: [id number] ADM DATE: 03/07/20 AGE: 80 : 38 SEX: M ROOM/BED: D.1173 AUTHOR: CHANCE MACDONALD PHYSICIAN: REFERRING PHYSICIAN: LI DOW MD DATE OF SERVICE: 03/12/20 Discharge Plan Patient Name: RYAN SORIANO Facility: [facility]:[place] : 1940 Planned Disposition: Home Anticipated Discharge Date: Discharge Date: Expected LOS: 0 Initial Reviewer: [email or web address] Initial Review Date: 03/07/2020 Generated: 03/12/20 2:33 pm Comments DCP- Discharge Planning Updated by [email or web address]: Gabrielle Carrillo on 03/12/20 12:[address] Patient Name: RYAN SORIANO Admission Status: Elective Accout number: [id number] Admission Date: 03-07-2020 : 1940 Admission Diagnosis:SEPSIS, UNSPECIFIED ORGANISM Attending: LI DOW Current LOS: 5 Anticipated DC Date: Planned Disposition: Home Primary Insurance: MEDICARE A & B Discharge Planning Comments: CM met with patient to complete initial dc planning assessment. Verbal consent given by patient to complete assessment. CM verified patient's address, phone number, and emergency contact phone numbers. Patient lives at home with his who is at bedside. Pt states he is independent. At discharge patient plans to return home and feels this is a safe discharge. CM discussed availability of home health, rehab services, and medical equipment. Pt states he has home oxygen with [facility]. States he is on 2 liters. His states that they do not have a portable 02 tank to go home. CM called Eel at [phone] with [facility]. States they ill bring a tank for the patient. Patient denied known discharge needs at this time. Transportation provider at discharge will be his . DC IMM delivered, explained, signed by the patient, and placed in chart. Signed form also left with the patient. JENNIFER signed to resume [facility]. Declination signed for any hh services. CM will continue to follow and will assist as needed with dc plans/needs. Appraisal Technician: Gabrielle Carrillo DCPIA - Discharge Planning Initial Assessment Updated by [email or web address]: Gabrielle Carrillo on 03/12/20 1:21 pm * Is the patient Alert and Oriented? Yes * How many steps to enter\exit or inside your home? RAMP * PCP CAMILO * [facility] * Preadmission Environment Home with Family * ADLs Independent * Equipment None * Verbal permission to speak to the caregivers and representatives has been obtained from the patient. N/A * Community resources currently utilized None * Additional services required to return to the preadmission environment? No * Can the patient safely return to the preadmission environment? Yes * Has this patient been hospitalized within the prior 30 days at any hospital? No Coverage Notice Reviewer: [id number] Shanice Carrillo Notice Issued Date-Time: 03/12/2020 11:00 Notice Type: Patient Choice Letter Notice Delivered To: Patient Relationship to Patient: Self Neurology Teacher Name: Delivery Method: HAND - Hand Delivered Katrin Days: Prior Verbal Notification: Recipient Understood Notice: Yes Recipient Signature: Yes Med Rec Note Co-signed by Attending: Coverage Notice Comment: [facility] PT. DECLINED Reviewer: [id number] Shnaice Carrillo Notice Issued Date-Time: 03/12/2020 11:00 Notice Type: IM Discharge Notice Notice Delivered To: Patient Relationship to Patient: Self Neurology Teacher Name: Delivery Method: HAND - Hand Delivered Katrin Days: Prior Verbal Notification: Recipient Understood Notice: Yes Recipient Signature: Yes Med Rec Note Co-signed by Attending: Coverage Notice Comment: IMM DELIVERED Last DP export: 03/12/20 12:25 Patient Name: RYAN SORIANO Page [phone] at 1333 All edits/amendments must be made on the electronic document DICTATION DATE: 03/12/20 1333 ACCOUNTS MANAGER: KRISTINA 03/12/20 1333 RPT#: [id number] DC DATE: STATUS: ADM IN [facility] [address] [place] [address] END OF REPORT
--- NOTE | 2020-03-12 15:56 | NUR ---
D/C RIGHT FOREARM PIV, TIP INTACT. DISCHARGE INSTRUCTIONS GIVEN VERBALLY AND HANDOUTS PROVIDED. TAKEN DOWN TO AT ED ENTRANCE VIA WHEELCHAIR REMAINS FREE FROM INJURY.
[2020-03-14 19:09] LABS: AEROBE ID Preliminary report (()); RESULT 1 Gram negative rods (())
== END 2020-03-12 15:00 | disposition home or self-care (01) | DRG 698 ==
LOC: D.ICU 13:19 → D.M2 18:51 → D.ICU 18:51 → D.M2 03-08 17:24
PROVIDERS: Emergency Medicine; Internal Medicine Interventional Cardiology; ADMIT Family Medicine; ATTEND Family Medicine
PROC: B2111ZZ Fluoroscopy of Multiple Coronary Arteries using Low Osmolar Contrast (ICD-10-PCS; 2020-03-08)
PROC: B2151ZZ Fluoroscopy of Left Heart using Low Osmolar Contrast (ICD-10-PCS; 2020-03-08)
PROC: 4A023N7 Measurement of Cardiac Sampling and Pressure, Left Heart, Percutaneous Approach (ICD-10-PCS; principal; 2020-03-08 13:00)
DX: N99.89 Other postprocedural complications and disorders of genitourinary system (principal); A41.9 Sepsis, unspecified organism; I21.4 Non-ST elevation (NSTEMI) myocardial infarction; I47.2 Ventricular tachycardia; N17.9 Acute kidney failure, unspecified; I38 Endocarditis, valve unspecified; N39.0 Urinary tract infection, site not specified; E78.5 Hyperlipidemia, unspecified; J44.9 Chronic obstructive pulmonary disease, unspecified; G25.2 Other specified forms of tremor; M19.90 Unspecified osteoarthritis, unspecified site; M06.9 Rheumatoid arthritis, unspecified; N18.9 Chronic kidney disease, unspecified; I12.9 Hypertensive chronic kidney disease with stage 1 through stage 4 chronic kidney disease, or unspecified chronic kidney disease; E83.42 Hypomagnesemia; E83.39 Other disorders of phosphorus metabolism; D63.1 Anemia in chronic kidney disease; Y83.9 Surgical procedure, unspecified as the cause of abnormal reaction of the patient, or of later complication, without mention of misadventure at the time of the procedure; Z72.0 Tobacco use